=== PATIENT | female | born 1950 | race Caucasian/White ===

== ENCOUNTER 2023-12-21 08:37 | Emergency (ER) | payer OTHER, SELFPAY ==
[2023-12-21 08:40] VITALS: BP 132/72
--- NOTE | 2023-12-21 10:37 | EDRN ---
Dereje Ramires PA in room w/pt at this time.
[2023-12-21 10:44] VITALS: BP 150/74
--- NOTE | 2023-12-21 10:51 | ED.GENMED ---
Addendum entered and electronically signed by Dez Kilpatrick Jr., PA-C 12/24/23 15:21:
Patient's urine culture with 100,000 E. coli. Patient was started on Keflex and otherwise will follow-up doctor. Generally feels well at home.
Original Note:
History of Present Illness
General
Chief Complaint: Weakness
Source: patient and spouse
Time Seen by Provider: 12/21/23 10:19
History of Present Illness
History of Present Illness:
73-year-old female with past medical history of Parkinson's presenting to the emergency department for evaluation of worsening Parkinson's-like symptoms noting that since September she feels as if she is having worsening internal shaking, shortness of
breath in the morning, chest discomfort and generally feeling unwell. Patient states that she is taking her Parkinson's medications, sleep medications and anxiety medicines as directed but she states that none of it seems to be working. Today she
worse but denies any new symptoms which is why she decided to come to the ER. Patient follows with the [facility] neurology, Dr. Ji and AMRIK Мария Umaña, with whom they have been communicating via the [employer] portal however
patient feels as if she is not getting any better and came to the emergency department today hoping to find answers as to may be causing her symptoms. She otherwise denies any chest pain, palpitations, diaphoresis, exertional dyspnea, fevers or
URI-like symptoms, urinary symptoms, bowel or urinary symptoms or any other concerns.
Past History
Past History
ED Past Medical History: Other (parkinsons)
ED Past Surgical History: None
Social History
Tobacco: Non-smoker
Alcohol: None
Drug: None
Personal:
Living: with family
Review of Systems
Review of Systems
All Other Systems: ROS reviewed and negative except as documented in HPI and ROS
Phy Exam
Physical Exam
Physical Exam:
GENERAL: Alert , in no apparent distress
HEAD: NCAT
EYE: clear conjunctiva
NECK: Supple
ENT: mmm.
CARDIAC: Regular rate and rhythm .
LUNGS: Clear breath sounds bilaterally, no acute respiratory distress, no wheezes/rales/rhonchi
ABDOMEN: Soft, without focal tenderness, no r/g, no cvat
NEUROLOGICAL: Alert and oriented, no focal neuro deficits, mild baseline resting tremor
SKIN: Warm and dry, skin intact.
MUSCULOSKELETAL: No edema, well perfused.
PSYCH: Normal and appropriate interaction but patient does have anxious affect
Scores
Heart Failure Risk
Heart Failure Risk Score: Not Applicable
Heart Score for Chest Pain Patients
STEMI patient?: Not applicable
Withdrawal Assessment of Alcohol
Withdrawal Assessment Completed?: Not applicable
Course
Orders/Labs/Results
Orders:
Orders
12/21/23 10:40
Electrocardiogram (*1) Urgent
Reason for Study: Shortness of Breath
EKG- Treatment ONCE
CR Chest - 2 Views Urgent
Comment:
Reason For Exam: SOB
12/21/23 10:57
Complete Blood Count/With Diff Urgent
12/21/23 11:35
Comprehensive Metabolic Panel Urgent
Magnesium Urgent
NT-proBNP Urgent
TSH Urgent
Troponin I Urgent
12/21/23 13:01
Urinalysis Reflex To Culture Urgent
Date Specimen was Collected: 12/21/23
Time Specimen was Collected: 12:56
Urine Microscopic Reflex Cult Urgent
Urine Culture Urgent
SHAHIDA Source: U
Specimen Description:
Date Specimen was Collected: 12/21/23
Time Specimen was Collected: 12:56
Abnormal Lab Results
12/21/23 12/21/23 12/21/23
10:57 11:35 13:01
RBC 3.15 L 10^6/uL
(4.20-5.40)
Hgb 10.7 L g/dL
(12.0-16.0)
Hct 29.4 L %
(37.0-47.0)
MCH 34.0 H pg
(27.0-31.0)
MPV 10.6 H fL
(7.4-10.4)
Chloride 116 H mmol/L
(98-107)
BUN 29 H mg/dl
(7-17)
Total Protein 5.9 L g/dl
(6.3-8.2)
TSH 8.54 H uIU/ml
(0.47-4.68)
Urine Ketones 1+ A
(Negative)
Ur Occult Blood Reflex 2+ A
(Negative)
Leukocyte Esterase Rfl 2+ A
(Negative)
Urine RBC 7-10 A /HPF
(0-2)
Urine WBC (Reflex) 16-20 A /HPF
(0-5)
Urine Bacteria (Reflex) Many A
(Negative)
12/21/23 10:57
12/21/23 11:35
Vital Signs
Initial and Last Documented VS:
Initial Vital Signs
Temp Pulse Resp BP Pulse Ox
98.7 F 60 18 132/72 99
12/21/23 08:40 12/21/23 08:40 12/21/23 08:40 12/21/23 08:40 12/21/23 08:40
Last Documented Vital Signs
Temp Pulse Resp BP Pulse Ox
98.7 F 56 22 141/73 100
12/21/23 08:40 12/21/23 13:15 12/21/23 13:15 12/21/23 13:00 12/21/23 13:00
MDM/Problems Addressed
Differential Diagnosis Includes:
progressive parkinsons symptoms, electrolyte disturbance, less concern for ACS or cardiopulmonary issue, less concern for acute infectious etiology
MDM/Problems Addressed:
73-year-old female presenting to the emergency department for evaluation of progressive internal shaking sensation, no relief with Parkinson's medications. Patient persistently anxious. No acute symptoms today. Will check labs, urine, EKG and
chest x-ray. Will attempt to contact patient's neurology team at [place]. Disposition pending
*Pulse Oximetry
Patient hypoxic: no
*Automatic Screwmaker Interpretation
Rate: normal
Rhythm: sinus
*Critical Care Note
Total Time (30-74mins, 75-104mins- exclusive of procedures): Not Applicable
Patient Management
Discussion with other providers: Stove Carriage Operator
Escalation/DeEscalation of care consider admission/obs:
Patient's Workup Is Largely Unremarkable for Any Acute Etiologies. Patient Did Have a Mild Elevation in Her TSH However I Am Less Suspicious That There Is an Overwhelming Thyroid Disorder Causing Her Symptomatology. Patient's Urinalysis Does Also
Show 2+ Leukocyte Esterase and 16-20 WBCs However There Is Many Bacteria and 16-20 Squamous Cells Likely Signifying Contamination. Patient without Any Significant Urinary Symptoms. Will Await Culture Prior to Initiating Treatment Which Both
Patient and Are in Agreement with. Patient Has an Appointment with Neurology on Wednesday. She Is Seeing Her Psychiatrist This Evening at 4 PM. Both Patient and Spouse Feel Comfortable Going Home. I Was Able to Speak with Patient's Neurology
Team and They Are in Agreement with Our Treatment Plan in the ER and Have No Further Recommendations.
ED Attending Note
-
Portions of this chart may have been created with voice recognition software.� Occasional wrong word or��sound alike� substitutions may have occurred due to the inherent limitations of voice recognition software.
Discharge Plan
Departure
Patient Disposition: Home (Routine Discharge)
Date of Disposition: 12/21/23
Time of Disposition: 13:23
Patient with high blood pressure during this ER visit?: No
Discharge Problem:
Parkinson disease
Instructions: Parkinson disease
Referrals:
SRAVAN OLSON [Other]
Interventions
Interventions:
*Risk Screen - Suicide Last Done: 12/21/23 08:40
*General Assessment Last Done: 12/21/23 10:46
*Neglect/Abuse Screening Last Done: 12/21/23 11:02
ED- Fall Risk Assessment Last Done: 12/21/23 10:46
*ED COVID-19 Vaccine History Last Done: 12/21/23 10:46
*Nursing Disposition Last Done: 12/21/23 13:40
ED- Cardiac Assessment Last Done: 12/21/23 11:03
ED- Neurological Assessment Last Done: 12/21/23 11:03
ED- Pulmonary Assessment Last Done: 12/21/23 11:03
Discharge Date and Time
Discharge Date/Time: 12/21/23 13:40
Print Language: HEBREW
[2023-12-21 11:00] VITALS: BP 133/69
[2023-12-21 11:07] LABS: % Basophils 0.5 % (0-2); % Eosinophils 0.5 % (0-6); % Immature Granulocytes 0.2 % (0-0.5); % Lymphocytes 26.4 % (20.5-51.1); % Monocytes 5.1 % (1.7-9.3); % Neutrophils 67.3 % (42.2-75.2); Absolute Lymphocytes 1.5 10^3/uL (1.2-3.4); Absolute Monocytes 0.3 10^3/uL (0.1-0.6); Absolute Neutrophils 3.7 10^3/uL (1.4-6.5); Hematocrit 29.4 % (37.0-47.0); Hemoglobin 10.7 g/dL (12.0-16.0); Mean Corp Hgb Conc. 36.4 g/dL (33.0-37.0); Mean Corpuscular Volume 93.3 fL (81.0-99.0); Mean Platelet Volume 10.6 fL (7.4-10.4); Nucleated Red Blood Cells % 0 %; Platelet Count 150 10^3/uL (130-400); Red Blood Cell Count 3.15 10^6/uL (4.20-5.40); Red Cell Dist. Width 12.6 % (11.5-14.5); White Blood Cell Count 5.5 10^3/uL (4.8-10.8)
--- NOTE | 2023-12-21 11:24 | EDRN ---
All labs hemolyzed at this time. Pt remains in xray,will have to await pt's return.
--- NOTE | 2023-12-21 11:39 | EDRN ---
Labs redrawn and resent to lab.
[2023-12-21 12:00] VITALS: BP 141/72
[2023-12-21 12:00] LABS: ALT (SGPT) < 10 U/L (0-35); AST (SGOT) 17 U/L (14-36); Albumin 3.9 g/dl (3.5-5.0); Alkaline Phosphatase 49 U/L (38-126); Blood Urea Nitrogen 29 mg/dl (7-17); Calcium 9.2 mg/dl (8.4-10.2); Carbon Dioxide 26 mmol/L (22-30); Chloride 116 mmol/L (98-107); Estimated Creatinine Clearance 39 ml/min; Glucose 91 mg/dl (70-99); Magnesium 2.1 mg/dl (1.6-2.3); Potassium 3.6 mmol/L (3.5-5.1); Sodium 141 mmol/L (135-145); Total Bilirubin 0.6 mg/dl (0.2-1.3); Total Protein 5.9 g/dl (6.3-8.2); eGFR > 60.00
[2023-12-21 12:10] LABS: NT-proBNP 370 pg/ml; Troponin I < 0.012 ng/ml
[2023-12-21 12:29] LABS: TSH 8.54 uIU/ml (0.47-4.68)
[2023-12-21 12:55] VITALS: BP 140/68
[2023-12-21 13:00] VITALS: BP 141/73
[2023-12-21 13:08] LABS: Urine Albumin Negative (Neg - Trace); Urine Bilirubin Negative (Negative); Urine Character Slightly Cloudy (Clear); Urine Glucose Negative (Negative); Urine Ketone 1+ (Negative); Urine Leukocyte 2+ (Negative); Urine Nitrite Negative (Negative); Urine Occult Blood 2+ (Negative); Urine Specific Gravity 1.015 (<1.030); Urine Urobilinogen Negative (Neg - 1+)
[2023-12-21 13:13] LABS: Urine Squamous Cell 16-20 /LPF (Few)
[2023-12-21 13:14] LABS: Urine Bacteria Many (Negative); Urine White Cell 16-20 /HPF (0-5)
--- NOTE | 2023-12-21 13:18 | EDRN ---
Pt ambulated to BR w/urine spec obtained and sent.
== END 2023-12-21 13:40 | disposition home or self-care (01) ==
LOC: EMR 08:37
PROVIDERS: Physician Assistant Medical; EMERGENCY PHYSICIAN Emergency Medicine
DX: G20.A1 Parkinson's disease without dyskinesia, without mention of fluctuations (principal)
CPT/HCPCS: 99283; 71046; 80053; 81003; 81015; 83735; 83880; 84443; 84484; 85025; 87086; 87088; 87186; 93005